=== PATIENT | male | born 1985 | race Caucasian/White ===

== ENCOUNTER 2024-03-01 13:10 | Outpatient (CLI) | payer SELFPAY ==
[2024-03-01 13:55] LABS: Basophils # 0.1 K/mm3 (0-0.2); Eosinophils # 0.1 K/mm3 (0.0-0.4); Eosinophils % 2.3 % (0.1-12.0); Hematocrit 43.7 % (42.0-52.0); Hemoglobin 13.8 g/dL (14.1-18.0); Mean Corpuscular HGB Conc 31.6 g/dL (31.8-35.4); Mean Corpuscular Hemoglobin 28.3 pg (27.0-31.2); Mean Corpuscular Volume 89.6 fl (80-94); Monocytes # 0.3 K/mm3 (0.1-1.0); Monocytes % 4.9 % (1.7-9.3); Neutrophils # 3.5 K/mm3 (1.8-7.8); Neutrophils % 58.8 % (37.0-80.0); Platelet Count 234 K/mm3 (142-424); Red Blood Count 4.88 M/mm3 (4.60-6.20); Red Cell Distribution Width 14.3 % (11.5-17.5)
[2024-03-01 14:21] LABS: Alanine Aminotransferase 28 U/L (12-78); Albumin Level 4.2 g/dl (3.5-5.0); Albumin/Globulin Ratio 1.4 (1.1-1.8); Alkaline Phosphatase 44 U/L (38-126); Aspartate Amino Transferase 37 U/L (17-59); Bilirubin,Total 0.7 mg/dl (0.2-1.3); Blood Urea Nitrogen 10 mg/dl (9-20); Calcium 9.5 mg/dl (8.4-10.2); Carbon Dioxide 34 mmol/L (22.0-30.0); Chloride 102 mmol/L (98-107); Estimated Glomerular Filt Rate 93 ml/min (>60); GFR (African American) 113 ML/MIN (>60); Globulin 2.9 g/dL (1.3-3.2); Glucose 115 mg/dl (74-100); Sodium 140 mmol/L (136-145); Total Protein,Serum 7.1 g/dl (6.3-8.2)
[2024-03-01 14:50] LABS: Phencyclidine Screen,Urine Negative ng/ml (<25)
[2024-03-01 14:56] LABS: Amphetamine/Metha Screen,Urine Negative ng/ml (<1000)
[2024-03-01 14:57] LABS: Barbiturates Screen,Urine Negative ng/ml (<200)
[2024-03-01 14:58] LABS: Benzodiazepines Screen,Urine Negative ng/ml (<200); Cannabinoid Screen,Urine Positive ng/ml (<50)
[2024-03-01 15:00] LABS: Opiate Screen,Urine Negative ng/ml (<300)
[2024-03-01 15:01] LABS: Cocaine Screen,Urine Negative ng/ml (<300)
[2024-03-01 15:02] LABS: Methadone Screen,Urine Negative ng/ml (<300)
[2024-03-02 08:55] LABS: HIV (1&2) Antibody Rapid NONREACTIVE (NONREACTIVE)
[2024-03-03 08:38] LABS: HBsAg Screen Negative (Negative); HCV Ab Non Reactive (Non Reactive); Hep A Ab, IGM Negative (Negative); Hep A Ab, Total Negative (Negative); Hep B Core Ab, IgM Negative (Negative); Hepatitis B Surf Ab Quant <3.5 mIU/mL (Immunity>10)
[2024-03-03 13:19] LABS: Rapid Plasma Reagin Ab Titer Non Reactive titer (NonRea<1:1)
[2024-03-03 21:29] LABS: QuantiFERON-TB Gold Plus Negative (Negative)
== END 2024-03-01 23:59 | disposition home or self-care (01) ==
PROVIDERS: PCP Family Medicine; Visit Provider Family Medicine
DX: F11.20 Opioid dependence, uncomplicated (principal)
CPT/HCPCS: 80053; 80074; 80307; 85025; 86480; 86593; 86706; 86708; 87389

== ENCOUNTER 2024-12-09 00:29 | Emergency (ER) | payer SELFPAY ==
--- NOTE | 2024-12-09 00:34 | ED_ITS ---
Discharge Plan Disposition Patient Disposition: Home, Self-Care Prescriptions Prescriptions: No Action buprenorphine-naloxone 8-2 mg tablet, sublingual 1 tab sublingual DAILY ondansetron 4 mg tablet,disintegrating 4 mg PO Q6H PRN (Reason: nausea and vomiting) Qty: 20 0RF lraghemehuzvzza-fkvxvsxkf-BX [Bromfed DM] 2-30-10 mg/5 mL syrup 5 ml PO Q4-6H PRN (Reason: cold symptoms) Qty: 118 0RF prednisone 20 mg tablet 20 mg PO BID Qty: 10 0RF azithromycin [Zithromax Z-Yeyo] 250 mg tablet See Rx Instructions PO .COMPLEX Qty: 6 0RF Rx Instructions: For 250 mg dose pack: take 500 mg today (day 1), then 250 mg for 4 days (days 2-5) PO Referrals Follow up/Referrals: Daryn Martinez MD [Primary Care Provider, Medical] - See instructions Activity Restrictions/Add. Instructions Additional Instructions/Restrictions: Please follow-up with your primary care provider. Please return to the emergency department if you develop any new or worsening symptoms or become concerned for your health. Clinical Impressions Clinical Impression: Arm numbness left Print Language Print Language: Citizen Of [place] Discharge ED Provider: Bran Cuba General Adult HPI General Chief complaint: Extremity Problem,Nontraumatic Stated complaint: L arm numbness, vision impairment, high HR Time Seen by Provider: 12/09/24 00:34 History of Present Illness HPI narrative: 38-year-old male with history of Suboxone use presents for multiple complaints. He reports that he woke up and his left arm was numb. Unfortunately the numbness did not go away and seem to get worse. He reports that he got kind of anxious, had some hyperventilation, got lightheaded. He tried to walk it off multiple times but it did not significantly improve. He denies any chest pain but does report mild shortness of breath when it was happening. He reports it is currently improved, 1 out of 10. Nothing like this has happened before. Reports no recent infectious symptoms. No recent trauma. He denies any change this to me. Related Data Home Medications ?Medication ?Instructions ?Recorded ?Confirmed buprenorphine 8 mg-naloxone 2 mg 1 tab sublingual JO Y 07/09/23 07/09/23 sublingual tablet Previous Rx's ?Medication ?Instructions ?Recorded xcpjqgetxnbyvbe-ifrrhexfgqgowyv-IC 5 ml PO Q4-6H PRN c old symptoms 07/09/23 2 mg-30 mg-10 mg/5 mL oral syrup #118 mL (Bromfed DM) ondansetron 4 mg disintegrating 4 mg PO Q6H PRN nausea and 07/09/23 tablet vomiting #20 tabs prednisone 20 mg tablet 20 mg PO BID #10 tabs azithromycin 250 mg tablet See Rx Instructions PO .COM PLEX #6 07/10/23 (Zithromax Z-Yeyo) tabs Allergies Allergy/AdvReac Type Severity Reaction Status Date / Time NO KNOWN ALLERGIES Allergy Uncoded 07/09/23 13:25 PFSH [facility] Disclaimer: The information contained in this section may have been updated after the patient was seen, as this information can be updated by other users. Medical History (Updated 12/09/24 @ 01:22 by Bran Cuba MD) History of anxiety disorder History of drug abuse in remission Surgical History (Updated 07/09/23 @ 13:26 by Adore Aleman MA) No significant past surgical history Family History (Updated 07/09/23 @ 13:28 by Adore Aleman MA) Family/Other No significant family history Social History (Updated 07/09/23 @ 13:29 by Adore Aleman MA) Smoking Status: Never smoker alcohol intake: never substance use type: denies use, former substance user and opiates current occupational status: employed Travel in the last 8 weeks?: None lives independently: Yes marital status: single service: No penitentiary: No Have you lived/traveled outside [place] in past 30 days?: No Contact w/someone who lives/traveled outside [place] past 30 days?: No Exposure to someone with infectious disease in past 14 days?: No Do you have a fever (greater than 100.4 F or 38 C)?: No Have you tested positive for COVID-19?: No Exposed to someone with COVID-19 in past 14 days?: No Do you have a sore throat?: No Do you have a cough?: No Do you have any weakness?: No Do you have any diarrhea?: No Are you experiencing any unusual bleeding?: No Do you have any muscle aches/pain?: No Do you have any abdominal pain?: No Are you experiencing loss of taste or smell?: No Other Medical History Have you received the Pneumonia Vaccine: No ROS Obtained: Yes All systems reviewed & no additional complaints except as documented Physical Exam General General appearance: alert and in no apparent distress Head Head exam: atraumatic and normocephalic Eye Eye exam: Present normal appearance, PERRL and EOMI ENT ENT exam: Present normal oropharynx and normal external ear exam Neck Neck exam: Present normal inspection and full ROM Chest Chest inspection: Present normal inspection and symmetric chest wall rise; Absent tenderness Respiratory Respiratory exam: Present normal lung sounds bilaterally; Absent respiratory distress Cardiovascular Cardiovascular exam: Present regular rate and normal rhythm Abdominal Exam Abdominal exam: Present soft; Absent distention, tenderness or guarding Extremities Exam Extremities exam: Present normal inspection; Absent edema or joint swelling Back Exam Back exam: Present normal inspection; Absent tenderness Neurological Exam Neurological exam: Present alert and oriented X3; Absent motor sensory deficit Psychiatric Psychiatric exam: Present normal affect and normal mood Skin Skin exam: Present warm, dry and normal color Lymphatic Lymphatic Findings: no adenopathy Medical Decision Making Medical Records Medical records reviewed: Yes I reviewed the patient's medical records. Screening: Per USPSTF and CDC recommendations, given the prevalence of disease in our region, it is our hospital?s policy to screen for HIV and viral Hepatitis for all patients aged 18 and over and those with ongoing risk factors. Octavio Inquiry Pt receiving controlled substance: No Octavio was queried for this patient: No Vital Signs: 12/09/24 00:37 12/09/24 00:38 12/09/24 01:01 Temperature 98 F Temperature Source Oral Pulse Rate 90 69 Pulse Rate [Radial] 89 Respiratory Rate 12 12 12 Blood Pressure 147/94 H 133/77 Blood Pressure [Right Arm] 147/94 H Blood Pressure Mean [Right Arm] 111 02 Sat by Pulse Oximetry 98 99 97 Oxygen Delivery Method Room Air Lab Data Lab results reviewed: Yes I reviewed the patient's lab results. Lab Results 12/09/24 00:41: WBC 8.6, RBC 4.76, Hgb 13.8 L, Hct 41.0 L, MCV 86.1, MCH 29.0, MCHC 33.7, RDW 13.2, Plt Count 302, MPV 9.6, Neut % (Auto) 48.1, Lymph % (Auto) 41.8, [place] % (Auto) 7.2, Eos % (Auto) 2.0, Baso % (Auto) 0.7, Neut # (Auto) 4.2, Lymph # (Auto) 3.6, [place] # (Auto) 0.6, Eos # (Auto) 0.2, Baso # (Auto) 0.1, D- Dimer 0.56 H, Sodium 134 L, Potassium 3.8, Chloride 95 L, Carbon Dioxide 28, Anion Gap 14.8, BUN 16, Creatinine 1.00, Estimated Creat Clear 110, Estimated GFR 83, Est GFR ( Amer) 100, Glucose 139 H, Calcium 9.6, Magnesium 1.9, Total Bilirubin 1.1, AST 47, ALT 16, Alkaline Phosphatase 62, Troponin I < 0.01, Total Protein 8.0, Albumin 4.8, Globulin 3.2, Albumin/Globulin Ratio 1.5 12/09/24 00:41 12/09/24 00:41 Orders (Tests/Meds): ORDERS Category Date Time Status CXR --portable [XR chest portable] Stat Exams 12/09/24 00:43 Completed CBC w/Auto Diff [Complete Blood Count Auto Diff] Stat Lab 12/09/24 00:41 Completed CMP [Comprehensive Metabolic Panel] Stat Lab 12/09/24 00:41 Completed D-Dimer Stat Lab 12/09/24 00:41 Completed MAG [Magnesium] Stat Lab 12/09/24 00:41 Completed Troponin I Q3H Lab 12/09/24 00:41 Completed Troponin I Q3H Lab 12/09/24 03:45 Ordered ECG Data Tracing #1: I reviewed this ECG and interpreted as documented below: Sinus tachycardia, rate of 100. Large volume QRS is most consistent with patient's skinny body habitus. ECG initial impression date: 12/09/24 ECG initial impression time: 00:35 HEART Score History (anamnesis): Slightly suspicious ECG: Non-specific disturbance Age: <45 years Risk factors: No known risk factors Troponin: </= normal limit HEART Score: 1 Medical Decision Narrative: 38-year-old male without significant past medical history presents for multiple complaints, arm numbness, lightheadedness, shortness of breath. History was obtained via interactive discussion with patient. On arrival, patient is [afebrile, hemodynamically stable, satting appropriately, alert, oriented x4, GCS 15], moving all extremities spontaneously. Full physical exam performed and significant for no significant physical exam abnormalities. Normal neurovascular exam of the affected limb. Differential includes but is not limited to anxiety, hyperventilation, electrolyte derangement, ACS, PE. Workup initiated including CBC CMP EKG mag D-dimer troponin chest x-ray. Not PERC out due to tachycardia.. On re-evaluation, patient [remains afebrile, HD stable.] Laboratory workup independently interpreted by me and significant for no significant electrolyte derangement, negative D-dimer by years criteria, negative troponin. Imaging independently interpreted by me and significant for clear lungs bilaterally without focal opacity, mildly hyperinflated. See radiology read for full review of final results. Given patient history, exam and workup, the underlying etiology of patient's presentation remains unclear but there is no evidence of emergent pathology at this time. These findings were communicated patient he was discharged in stable condition with return precautions. Procedures Risk/Benefits of Procedure(s) Were Explained: Yes Critical Care Critical Care Time Critical Care Time: No
--- NOTE | 2024-12-09 00:35 | ECG_ITS ---
APPROVED REPORT Exam: Resting ECG HR:100 bpm ECG Measurements Heart Rate 100 AXES WY 120 P 72 QRSd 100 QRS 79 QT 347 T 56 QTc 404 Conclusion SINUS TACHYCARDIA LEFT VENTRICULAR HYPERTROPHY AND ST-T CHANGE [VOLTAGE CRITERIA PLUS ST/T ABNORMALITY] ABNORMAL ECG UNCONFIRMED REPORT Electronically signed by : ALISSA MCCLURE, 12/11/2024 02:40:53
[2024-12-09 00:37] VITALS: BP 147/94; PULSE 89; RESP 12; TEMP 36.6; O2SAT 98; BMI 23.7
[2024-12-09 00:38] VITALS: BP 147/94; PULSE 90; RESP 12; O2SAT 99
--- NOTE | 2024-12-09 00:43 | XR_ITS ---
PROCEDURE INFORMATION: Exam: XR Chest Exam date and time: 12/09/2024 12:59 AM Age: 38 years old Clinical indication: Pain; Chest pressure; Additional info: Cp TECHNIQUE: Imaging protocol: Radiologic exam of the chest. Views: 1 view. Total images: 1 COMPARISON: No relevant prior studies available. FINDINGS: Lungs: Unremarkable. No consolidation. No pulmonary vascular congestion or edema. Pleural spaces: Unremarkable. No pleural effusion. No pneumothorax. Heart/Mediastinum: Unremarkable. No cardiomegaly. No mediastinal widening or hilar enlargement. Bones/joints: Unremarkable. IMPRESSION: No radiographically acute cardiopulmonary process.
[2024-12-09 00:48] LABS: Basophils # 0.1 K/mm3 (0-0.2); Basophils % 0.7 % (0.1-2.0); Eosinophils # 0.2 Kmm3 (0.0-0.4); Hemoglobin 13.8 g/dL (14.1-18.0); Immature Granulocytes # 0.02 10^3uL; Immature Granulocytes % 0.2 %; Lymphocytes # 3.6 K/mm3 (0.7-4.5); Lymphocytes % 41.8 % (10-50); Mean Corpuscular HGB Conc 33.7 g/dL (31.8-35.4); Mean Corpuscular Volume 86.1 fl (80-94); Mean Platelet Volume 9.6 fl (7.4-10.4); Monocytes # 0.6 K/mm3 (0.1-1.0); Monocytes % 7.2 % (1.7-9.3); Neutrophils # 4.2 K/mm3 (1.8-7.8); Neutrophils % 48.1 % (37.0-80.0); Nucleated Red Blood Cells # 0 10^3/uL; Nucleated Red Blood Cells % 0 %; Platelet Count 302 K/mm3 (142-424); Red Blood Count 4.76 M/mm3 (4.60-6.20); Red Cell Distribution Width 13.2 % (11.5-17.5); Red Cell Distribution Width-SD 41.4 fL; White Blood Count 8.6 K/mm3 (4.8-10.8)
[2024-12-09 01:01] VITALS: BP 133/77; PULSE 69; RESP 12; O2SAT 97
[2024-12-09 01:09] LABS: Alanine Aminotransferase 16 U/L (12-78); Albumin Level 4.8 g/dl (3.5-5.0); Albumin/Globulin Ratio 1.5 (1.1-1.8); Alkaline Phosphatase 62 U/L (38-126); Anion Gap 14.8 mEq/L (5-15); Aspartate Amino Transferase 47 U/L (17-59); Bilirubin,Total 1.1 mg/dl (0.2-1.3); Blood Urea Nitrogen 16 mg/dl (9-20); Calcium 9.6 mg/dl (8.4-10.2); Carbon Dioxide 28 mmol/L (22.0-30.0); Chloride 95 mmol/L (98-107); Creatinine Clearance Estimated 110 mL/min (50-200); Estimated Glomerular Filt Rate 83 ml/min (>60); GFR (African American) 100 ML/MIN (>60); Globulin 3.2 g/dL (1.3-3.2); Glucose 139 mg/dl (74-100); Magnesium 1.9 mg/dl (1.6-2.3); Potassium 3.8 mmoL/L (3.5-5.1); Sodium 134 mmol/L (136-145)
[2024-12-09 01:13] LABS: D-Dimer 0.56 ug/mL (0.0-0.5)
[2024-12-09 01:23] LABS: Troponin I < 0.01 ng/ml (0.00-0.034)
[2024-12-09 01:36] VITALS: BP 109/59; PULSE 63; RESP 18; TEMP 36.7; O2SAT 99
== END 2024-12-09 01:40 | disposition home or self-care (01) ==
PROVIDERS: Emergency Provider Emergency Medicine; PCP Family Medicine
DX: R06.02 Shortness of breath (principal); R20.0 Anesthesia of skin; R00.0 Tachycardia, unspecified
CPT/HCPCS: 71045; 80053; 83735; 84484; 85025; 85378; 93005; 99284

== ENCOUNTER 2025-04-07 13:42 | Outpatient (CLI) | payer BC, SELFPAY ==
[2025-04-07 14:23] LABS: Hematocrit 42.8 % (42.0-52.0); Hemoglobin 14.4 g/dL (14.1-18.0); Immature Granulocytes % 0.3 %; Mean Corpuscular HGB Conc 33.6 g/dL (31.8-35.4); Mean Corpuscular Hemoglobin 29.5 pg (27.0-31.2); Mean Corpuscular Volume 87.7 fl (80-94); Nucleated Red Blood Cells % 0 %; Platelet Count 238 K/mm3 (142-424); Red Blood Count 4.88 M/mm3 (4.60-6.20); Red Cell Distribution Width-SD 42.7 fL; White Blood Count 6.3 K/mm3 (4.8-10.8)
[2025-04-07 15:38] LABS: Albumin Level 4.3 g/dl (3.5-5.0); Chloride 99 mmol/L (98-107); Potassium 4.5 mmoL/L (3.5-5.1); Sodium 137 mmol/L (136-145)
[2025-04-07 15:40] LABS: Anion Gap 11.5 mEq/L (5-15); Bilirubin,Unconjugated 0.9 mg/dL (0.0-1.1); Blood Urea Nitrogen 10 mg/dl (9-20); Carbon Dioxide 31 mmol/L (22.0-30.0); Creatinine,Serum 0.90 mg/dl (0.66-1.25); Estimated Glomerular Filt Rate 93 ml/min (>60); GFR (African American) 113 ML/MIN (>60)
[2025-04-07 15:41] LABS: Alanine Aminotransferase 13 U/L (12-78); Alkaline Phosphatase 63 U/L (38-126); Aspartate Amino Transferase 33 U/L (17-59); Bilirubin,Direct 0.0 mg/dl (0.0-0.4); Bilirubin,Indirect 0.9 mg/dL (0.0-0.9); Bilirubin,Total 0.9 mg/dl (0.2-1.3); Calcium 9.0 mg/dl (8.4-10.2); Glucose 107 mg/dl (74-100); Total Protein,Serum 7.0 g/dl (6.3-8.2)
[2025-04-08 06:51] LABS: RPR W/RFX Titers Nonreactive (Nonreactive)
[2025-04-08 08:17] LABS: Hep A Ab, Total Negative (Negative)
== END 2025-04-07 23:59 | disposition home or self-care (01) ==
LOC: LAB 13:43
PROVIDERS: Visit Provider Nurse Practitioner Family
DX: F19.99 Other psychoactive substance use, unspecified with unspecified psychoactive substance-induced disorder (principal); Z20.2 Contact with and (suspected) exposure to infections with a predominantly sexual mode of transmission; Z20.5 Contact with and (suspected) exposure to viral hepatitis; Z91.89 Other specified personal risk factors, not elsewhere classified; Z01.89 Encounter for other specified special examinations
CPT/HCPCS: 36415; 80048; 80074; 80076; 85025; 86480; 86592; 86706; 87389; 87491; 87522; 87902; G0432